=== PATIENT | female | born 1995 | race Caucasian/White ===

== ENCOUNTER 2023-05-19 16:10 | Emergency (ER) | payer OTHER, SELFPAY ==
[2023-05-19 16:21] VITALS: BP 149/91; PULSE 92; O2SAT 98
[2023-05-19 16:26] VITALS: BP 163/92; PULSE 92; RESP 17; TEMP 36.6; O2SAT 97; BMI 44.6
--- NOTE | 2023-05-19 17:09 | ED_ITS ---
HPI - Wound/Laceration General Chief Complaint: Wound/Laceration Stated Complaint: [facility] HOME,HX SI & AUTISM, USED GLASS TO CUT L WRIST Time Seen by Provider: 05/19/23 17:09 Source: patient, EMS and RN notes reviewed Mode of arrival: EMS Limitations: no limitations History of Present Illness HPI narrative: Patient is a 27-year-old female with history of autism presenting to the emergency department with self-inflicted laceration to right volar wrist. Patient reports history of self-harm behavior and was feeling anxiety. She denies suicidal or homicidal ideation. Denies auditory or visual hallucinations. Reports she made the cut with a piece of glass. Reports feeling decreased anxiety after being medicated with PRN medication prior to arrival at care home. alf staff contacted CARE team in the ED prior to patient transport and both agree patient's actions were not a suicide attempt. Tdap status unknown. Onset (ago): hour(s) Extremity Location: right: arm Place: home Context: self-inflicted assault Associated symptoms: pain Treatments prior to arrival: bandage Related Data Allergies Allergy/AdvReac Type Severity Reaction Status Date / Time No Known Allergies Allergy Verified 05/19/23 18:08 Review of Systems Review of Systems: As per HPI. Yes all other systems are reviewed and are negative Constitutional: Constitutional: Reports as per HPI [facility] Social History Social History Advance Directives: No Advance Directives Information Provided: No Physical Exam Vital Signs: Vital Signs: Last Vital Signs Temp 98 F 05/19/23 16:26 Pulse 92 05/19/23 16:26 Resp 17 05/19/23 16:26 BP 163/92 H 05/19/23 16:26 Pulse Ox 97 05/19/23 16:26 BMI result Body Mass Index 44.6 Vital signs have been reviewed and appear to be correct. Blood pressure elevated. Heart rate normal. Respiratory rate normal. Temperature normal. Oxygen saturation normal. Const: General: cooperative, healthy appearing and no acute distress Orientation/consciousness: oriented to person, oriented to place, oriented to time and patient oriented x3 Limitations: no limitations HEENT: Head: Yes normocephalic and Yes atraumatic Ears: external ears normal General nose exam: Normal external nose present Face and sinus: Yes face symmetric Mouth: oropharynx normal and moist mucous membranes Throat: Yes uvula midline Eyes: Pupils: Equal, round and reactive pupils present Neck: Neck: Yes normal visual inspection and Yes supple Resp: Effort & Inspection: normal respiratory effort and able to speak in complete sentences Auscultation: clear to auscultation bilaterally Cardio: Rate: regular rate Rhythm: regular rhythm Heart sounds: S1 nor mal heart sound present and S2 normal heart sound present GI: Palpation (GI): Soft to palpation and nontender Auscultation: normoactive bowel sounds : General: Yes no CVA tenderness Back/Spine/Pelvis: Back: no CVA tenderness Skin: General skin exam: elasticity normal and turgor normal Trauma: laceration right anterior wrist linear (2cm) and superficial Neuro: General: oriented to person, oriented to place, oriented to time, patient oriented x3, moves all extremities, no focal motor deficits and CN's II- XI intact bilaterally Cranial nerves: Yes Equal, round and reactive pupils present Cognition (Neuro): normal cognition Extrem: General: Yes full ROM, Yes no pedal edema and Yes no calf tenderness Psych: Mental Status: mental status grossly normal Affect: normal affect Thought process: Normal thought process present Medical Decision Making Medical Decision Making MDM Narrative: Patient is a 27-year-old female with history of autism presenting to the emerge ncy department with self-inflicted laceration to right volar wrist. On exam patient is awake, A+Ox3, BP elevated, VS otherwise WNL, afebrile, normal neurological exam without focal deficits, physical exam findings above. Given reported symptoms and physical exam findings, initial differential includes laceration, abrasion, cellulitis. Laceration repaired as per procedure note. Instructed patient to keep area covered with a Band-Aid and assess wound daily for signs of infection. Discussed with patient the glue will fall off on its own. Do not feel patient requires care team evaluation at this time as care home staff and patient denies suicidal ideation. alf staff agreeable for patient to return. Patient verbalized understanding of and agreement with plan. Differential Diagnosis Differential Diagnoses: The differential diagnosis associated with the presentation includes As Per MDM. Independent Historian Clinical information obtained from an independent historian. History obtained from or confirmed by: Other (care home staff,CARE team) External Record Review External record reviewed: Inpatient record, Office record and Outpatient record Procedures Laceration Laceration 1: Site: upper extremity Side (If applicable): right Size (cm): 2 Description: linear Depth: simple, single layer Pre-repair: irrigated extensively and deep structures intact Skin layer closed with: other (Exofin glue) Discharge Plan Discharge Clinical Impression: Self-inflicted laceration of right wrist Patient Disposition: Home, Self-Care Instructions: Laceration (DC), Skin Adhesive Care (ED) Additional Instructions: You have been evaluated in the emergency department today for a laceration to your wrist. Your laceration was repaired in the emergency department with glue. The glue with fall off on it's own in a few days. Do not pick at or peel off the glue. Please keep the area surrounding the laceration clean and dry and keep Band-Aid in place for the next 24 hours. After that please change the Band-Aid and assess the wound daily. If you develop fever, redness, swelling at the site of your laceration, or thick yellow drainage please come back to the ER for a wound check.
--- NOTE | 2023-05-19 17:53 | PC.NURSE ---
spoke with economic development manager and they will come to get the pt
[2023-05-19] MEDS: Diphth,Pertus(ACell),Tet Adult 0.5 ML SYRINGE IM (18:24)
== END 2023-05-19 18:49 | disposition home or self-care (01) ==
PROVIDERS: Emergency Provider Internal Medicine; PCP Student in an Organized Health Care Education/Training Program
DX: S61.511A Laceration without foreign body of right wrist, initial encounter (principal); X78.8XXA Intentional self-harm by other sharp object, initial encounter; Y93.9 Activity, unspecified; Y92.049 Unspecified place in boarding-house as the place of occurrence of the external cause; Y99.9 Unspecified external cause status; E66.9 Obesity, unspecified; Z68.41 Body mass index [BMI] 40.0-44.9, adult; Z91.52 Personal history of nonsuicidal self-harm
CPT/HCPCS: 12001; 90471; 90715; 99282; 99284

== ENCOUNTER 2023-06-26 18:30 | Emergency (ER) | payer OTHER, SELFPAY ==
--- NOTE | 2023-06-26 18:44 | ED.PSYCH ---
HPI - Psych General Chief Complaint: Wound/Laceration Stated Complaint: pt got osbaldo broke perf bottle and cut her self Source: patient Mode of arrival: EMS Limitations: no limitations History of Present Illness HPI Narrative: 27 yo female with PMH of mood disorder and self harm here with c/o cutting arm with glass from perfume bottle, burning herself with heating duct. She states no SI/HI but just needed a release. senior care wants her evaluated. complaint: other Onset (ago): day(s) (1) Duration: intermittent History of same: Yes Relieving factors: none Exacerbating factors: other Context: other Associated psychiatric symptoms: depression Associated symptoms: other (self harm) Treatments prior to arrival: none Related Data Allergies Allergy/AdvReac Type Severity Reaction Status Date / Time ibuprofen Allergy Hives Verified 06/26/23 20:39 Review of Systems Review of Systems: Constitutional : No Fever, No Chills, Cardiovascular : No Chest Pain, No SOB Respiratory : No Dyspnea Gastrointestinal : No abdominal pain Musculoskeletal : No Joint Swelling Skin : No rash, positive skin laceration Neuro : No Weakness, No Numbness Psych : No SI/HI, pos anxiety All other systems reviewed and are negative [facility] Past Medical History Source: old records reviewed Medical History (Updated 06/26/23 @ 19:21 by Chery Grande DO) Mood disorder Social History Social History (Updated 06/26/23 @ 19:21 by Chery Grande DO) Patient Tobacco Use Status: Never used Tobacco Advance Directives: No Advance Directives Information Provided: No Physical Exam Vital Signs: Vital Signs: Last Vital Signs Temp 99.2 F 06/26/23 19:15 Pulse 92 06/26/23 19:15 Resp 17 06/26/23 19:15 BP 121/68 06/26/23 19:15 Pulse Ox 97 06/26/23 19:15 O2 Del Method Room Air 06/26/23 19:15 BMI result Body Mass Index 34.3 Appearance: Alert. Oriented X3. No acute distress. Eyes: Pupils equal, round and reactive to light. ENT: Pharynx normal. Neck: Normal inspection. Neck supple. CVS: Normal heart rate and rhythm. Pulses normal. Respiratory: No respiratory distress. Breath sounds normal. Abdomen: Soft and nontender. Skin: Skin warm and dry. Normal skin color. Normal skin turgor. Extremities: No lower extremity edema. L forearm superficial abrasions, mild erythema forearm, R index finger superficial abrasions Neuro: Oriented X 3. No motor deficit. No sensory deficit. CN2-12 intact Course Course Course Narrative: Physician observation started at 9pm Patient placed in physician observation because the patient needed more time for CARE team to assess the need for psych admission. At the time observation was started the patient's vitals were stable, patient is alert and oriented but slightly anxious, Neuro: nonfocal, CV RRR, Lungs clear Reevaluation(s) Reevaluation #1: no urinary symptoms will wait on culture Medical Decision Making Medical Decision Making MDM Narrative: 27 yo female with mental health issues and cutting behaviors here with minor injuries to L foream and R index finger in anger and release denies SI but [facility] refusing to take her back until crisis evaluation, wounds superficial, CARE team consult ordered. Differential Diagnosis Differential Diagnoses: The differential diagnosis associated with the presentation includes self harm Admission/Observation Consideration of admission/observation: Escalation of care including admission/observation considered until CARE team sees patient Consult Healthcare Provider Management of the patient was discussed with: Behavioral Health Provider Lab Data 06/26/23 19:44 06/26/23 19:44 Labs: Lab Results 06/26/23 Range/Units 19:44 WBC 11.5 H (4.8-10.8) X10*3/uL RBC 4.02 L (4.20-5.50) X10*6/uL Hgb 13.1 (12.0-16.0) g/dl Hct 40.7 (37.0-47.0) % MCV 101.2 H (80.0-98.0) fL MCH 32.6 (27.0-33.0) pg MCHC 32.2 (31.0-35.0) g/dl RDW 13.1 (11.0-16.0) % Plt Count 295 (160-400) X10*3/uL MPV 8.9 L (9.4-12.3) fL Immature Gran % (Auto) 0.6 H (0.0-0.4) % Neut % (Auto) 53.6 (45-73) % Lymph % (Auto) 32.9 (20-40) % [place] % (Auto) 7.7 (2-11) % Eos % (Auto) 4.4 H (0-4) % Baso % (Auto) 0.8 (0-2) % Lymph # (Auto) 3.8 (1.2-4.9) X10*3/uL [place] # (Auto) 0.9 (0.1-1.2) X10*3/uL Eos # (Auto) 0.5 H (0.0-0.4) X10*3/uL Baso # (Auto) 0.1 (0.0-0.2) X10*3/uL Abs Immat Gran (auto) 0.07 H (0.00-0.03) X10*3/uL Absolute Neuts (auto) 6.1 (2.0-8.3) x10*3/uL Absolute Nucleated RBC 0.000 (0.0-0.012) X10*3/uL Nucleated RBC % (auto) 0.0 (0.0-0.2) /100WBC Sodium 142 (135-145) mmol/L Potassium 4.1 (3.3-5.1) mmol/L Chloride 110 H (96-108) mmol/L Carbon Dioxide 27 (22-29) mmol/L Anion Gap 9 L (12-20) BUN 10 (9-16) mg/dL Creatinine 1.00 (0.5-1.4) mg/dL Estim Creat Clear Calc 90.5 Estimated GFR > 60 Random Glucose 95 (60-115) mg/dL Calcium 9.5 (8.4-10.2) mg/dL Urine Color Yellow Urine Appearance Clear Urine pH 6.5 (5.0-9.0) Ur Specific [place] <= 1.005 (1.005-1.025) Urine Protein Negative (Neg-Trace) mg/dL Urine Glucose (UA) Negative (Negative) mg/dL Urine Ketones Negative (Negative) mg/dL Urine Blood Negative (Negative) Urine Nitrite Negative (Negative) Ur Leukocyte Esterase Small (1+) H (Negative) Urine RBC 0-2 (0-2) /HPF Urine WBC 11-20 H (0-5) /HPF Ur Squamous Epith Cells 3-5 (0-2) /HPF Urine Bacteria Trace (None Seen) Hyaline Casts 0-2 (0-2) /LPF Urine Test NEGATIVE (NEGATIVE) Urine Opiates Screen Not Detected (Not Detect) Urine Fentanyl Screen Not Detected (Not Detect) Ur Barbiturates Screen Not Detected (Not Detect) Ur Phencyclidine Scrn Not Detected (Not Detect) Ur Amphetamines Screen Not Detected (Not Detect) U Benzodiazepines Scrn Not Detected (Not Detect) [place] 0.44 L (0.60-1.20) mmol/L Urine Cocaine Screen Not Detected (Not Detect) U Marijuana (THC) Screen Not Detected (Not Detect) External Record Review External record reviewed: Outpatient record Discharge Plan Discharge Clinical Impression: Abrasion Patient Disposition: Still a Patient Instructions: Abrasion (ED)
[2023-06-26 18:46] VITALS: BP 140/95; PULSE 96; O2SAT 96; BMI 34.3
[2023-06-26 19:15] VITALS: BP 121/68; PULSE 92; RESP 17; TEMP 37.3; O2SAT 97
--- NOTE | 2023-06-26 19:15 | PC.NURSE ---
Spoke to Director ( Chloe) and she does not patient to return to snf until she is has been seen by crisis. pt denied any SI to this RN and to the provider. Charge nurse is aware along with pod nurse.
--- NOTE | 2023-06-26 19:20 | PC.NURSE ---
[facility]pc contact: Chloe Almendarez [phone]
--- NOTE | 2023-06-26 19:27 | PC.NURSE ---
Pt ca&ox4, no signs of distress. Pt ambulates with a steady gait. Pt changed over. Plan of care ongoing.
[2023-06-26 19:58] LABS: MANUAL DIFF FLAG NO
[2023-06-26 20:01] LABS: Basophils Absolute Auto 0.1 X10*3/uL (0.0-0.2); Basophils Percent Auto 0.8 % (0-2); Eosinophils Absolute Auto 0.5 X10*3/uL (0.0-0.4); Eosinophils Percent Auto 4.4 % (0-4); Hematocrit 40.7 % (37.0-47.0); Hemoglobin 13.1 g/dl (12.0-16.0); Imm Gran Abs Auto 0.07 X10*3/uL (0.00-0.03); Imm Gran Pct Auto 0.6 % (0.0-0.4); Lymphocytes Absolute Auto 3.8 X10*3/uL (1.2-4.9); Lymphocytes Percent Auto 32.9 % (20-40); Mean Corpuscular HGB Conc 32.2 g/dl (31.0-35.0); Mean Corpuscular Hemoglobin 32.6 pg (27.0-33.0); Mean Corpuscular Volume 101.2 fL (80.0-98.0); Mean Platelet Volume 8.9 fL (9.4-12.3); Monocytes Absolute Auto 0.9 X10*3/uL (0.1-1.2); Monocytes Percent Auto 7.7 % (2-11); Neutrophils Absolute Auto 6.1 x10*3/uL (2.0-8.3); Neutrophils Percent Auto 53.6 % (45-73); Platelet Count 295 X10*3/uL (160-400); Red Blood Count 4.02 X10*6/uL (4.20-5.50); Red Cell Distribution Width 13.1 % (11.0-16.0); White Blood Count 11.5 X10*3/uL (4.8-10.8)
[2023-06-26 20:04] LABS: UPreg QC Valid YES; Urine Pregnancy NEGATIVE (NEGATIVE)
[2023-06-26 20:05] LABS: Appearance Urine Clear; Color Urine Yellow; Glucose Urine UA Negative (Negative); Leukocyte Esterase Urine Small (1+) (Negative); Nitrite Urine Negative (Negative); PH 6.5 (5.0-9.0); Specific Gravity - Urine <= 1.005 (1.005-1.025); UMIC TRIGGER UACC YES; Urine Blood Negative (Negative); Urine Ketones Negative (Negative); Urine Protein Negative (Neg-Trace)
[2023-06-26 20:09] LABS: Bacteria Urine Trace (None Seen); Hyaline Casts Urine 0-2 /LPF (0-2); RBC Urine 0-2 /HPF (0-2); UACC Culture Trigger YES
[2023-06-26 20:13] LABS: Amphetamine Screen Urine Not Detected (Not Detect); Barbiturates, Urine Not Detected (Not Detect); Benzodiazepines Screen Urine Not Detected (Not Detect); Cannabinoid Screen Urine Not Detected (Not Detect); Cocaine Screen Urine Not Detected (Not Detect); Fentanyl, urine Not Detected (Not Detect); Opiate Screen Urine Not Detected (Not Detect); Phencyclidine Screen Urine Not Detected (Not Detect)
[2023-06-26 20:15] LABS: Lithium 0.44 mmol/L (0.60-1.20)
[2023-06-26 20:21] LABS: Anion Gap 9 (12-20); Blood Urea Nitrogen 10 mg/dL (9-16); Calcium 9.5 mg/dL (8.4-10.2); Carbon Dioxide 27 mmol/L (22-29); Chloride 110 mmol/L (96-108); Creatinine Clr Calc Pharmacy 90.5; Estimated Glomerular Filt Rate > 60; Glucose Random 95 mg/dL (60-115); Potassium 4.1 mmol/L (3.3-5.1); Sodium 142 mmol/L (135-145)
[2023-06-27 01:30] VITALS: BP 124/72; PULSE 87; RESP 16; TEMP 37.3; O2SAT 97
== END 2023-06-27 10:04 | disposition home or self-care (01) ==
PROVIDERS: Emergency Provider Emergency Medicine; PCP Student in an Organized Health Care Education/Training Program
DX: S40.812A Abrasion of left upper arm, initial encounter (principal); F33.1 Major depressive disorder, recurrent, moderate; X78.9XXA Intentional self-harm by unspecified sharp object, initial encounter; Y93.9 Activity, unspecified; Y92.9 Unspecified place or not applicable; Y99.9 Unspecified external cause status; Z79.899 Other long term (current) drug therapy
CPT/HCPCS: 36415; 80048; 80178; 80307; 81001; 81003; 81025; 85025; 87086; 99284; S9485